=== PATIENT | male | born 1940 | race Caucasian/White ===

== ENCOUNTER 2016-06-30 05:24 | Inpatient (IN) ==
[2016-06-30] MEDS ORDERED: ceFAZolin 1,000 MG VIAL ONE (05:56)
[2016-06-30] MEDS ORDERED: VANCOMYCIN 1,000 MG VIAL ONE (05:56)
[2016-06-30] MEDS ORDERED: SODIUM CHLORIDE 0.9% 100 ML IV ONE (05:56)
[2016-06-30] MEDS ORDERED: VANCOMYCIN INJ 1,000 MG in SODIUM CHLORIDE 0.9% 250 ML IV ONE (06:00)
[2016-06-30] MEDS ORDERED: MORPHINE 10 MG/1 ML VIAL ONE (06:36)
[2016-06-30] MEDS ORDERED: BUPIVACAINE 0.5% 50 ML VIAL ONE (06:36)
[2016-06-30] MEDS ORDERED: EPINEPHrine 1 MG/ML VIAL ONE (06:36)
[2016-06-30] MEDS ORDERED: methylPREDNISolone SOD SUC 125 MG/2 ML VIAL ONE (06:37)
[2016-06-30] MEDS ORDERED: LORazepam 1 MG TABLET PO STA (06:43)
[2016-06-30] MEDS ORDERED: FAMOTIDINE 20 MG TABLET PO STA (06:43)
[2016-06-30] MEDS ORDERED: FAMOTIDINE 20 MG TABLET ONE (06:47)
[2016-06-30] MEDS ORDERED: LORazepam 1 MG TABLET ONE (06:47)
[2016-06-30] MEDS ORDERED: TRANEXAMIC ACID 1,000 MG/10 ML VIAL IV ONE (06:47)
--- NOTE | 2016-06-30 06:51 | History and Physical Update ---
History and Physical Update - History and Physical H&P was reviewed, the patient examined and there: are no changes in the patients condition since last H&P was completed. - Dictation Physical: refer to scanned H&P
[2016-06-30] MEDS ORDERED: ONDANSETRON 4 MG/2 ML VIAL ONE (06:58)
[2016-06-30] MEDS ORDERED: PROPOFOL 200 MG/20 ML VIAL IV ONE (06:58)
[2016-06-30] MEDS ORDERED: SUCCINYLCHOLINE 200 MG/10 ML VIAL ONE (06:58)
[2016-06-30] MEDS ORDERED: LACTATED RINGERS 1,000 ML IV SCH (07:00)
[2016-06-30] MEDS ORDERED: ONDANSETRON 4 MG/2 ML VIAL IV PRN (08:33)
[2016-06-30] MEDS ORDERED: diphenhydrAMINE CAP 25 MG CAPSULE PO PRN (08:33)
[2016-06-30] MEDS ORDERED: DESFLURANE 1 UNIT/15 MINUTE INH ONE (08:53)
[2016-06-30] MEDS ORDERED: fentaNYL 100 MCG/2 ML VIAL ONE (08:53)
[2016-06-30] MEDS ORDERED: ACETAMINOPHEN 1,000 MG/100 ML VIAL IV ONE (08:53)
[2016-06-30] MEDS ORDERED: MIDAZOLAM 2 MG/2 ML VIAL ONE (08:53)
[2016-06-30] MEDS ORDERED: hydrALAZINE 20 MG/1 ML VIAL ONE (09:11)
[2016-06-30] MEDS ORDERED: hydrALAZINE 20 MG/1 ML VIAL IV ONE (09:16)
[2016-06-30] MEDS ORDERED: ROPIVACAINE 0.5% 30 ML VIAL ONE (09:17)
--- NOTE | 2016-06-30 09:37 | Anesthesia Post-Op ---
Anesthesia Post OP - Post Ansesthetic Evaluation Patient seen in post op: Yes Resp: within normal limits CV: within normal limits Mental: within normal limits Temp: within normal limits [id number]: within normal limits Nausea and Vomiting: within normal limits Pain: within normal limits
--- NOTE | 2016-06-30 11:32 | Pulmonology Progress Note ---
Pulmonary - PN: Subj Interval history: Roger Bosch, ANP-BC, GNP-BC, acting as scribe for Dr. Desean Mark Mr. Monet is a 76-year-old white male who underwent left total knee replacement earlier today (06/30/2016) by Dr. Naylor. He was seen postop along with his Deborah. He was cleared for surgery by Dr. Mark and Dr. Sewell. Other past history includes: Sick sinus syndrome requiring cardiac pacemaker, history of sleep apnea requiring CPAP which the patient no longer wears, asthma , chronic allergic sinusitis, hypertension, hyperlipidemia, severe degenerative joint disease, history of exogenous obesity improved with diet, past history of painful right upper and lower teeth with pain near GI responded to Klonopin, benign colon polyps, in July 2011 diagnosis of [place] grade 6 adenocarcinoma of the prostate that was treated with radiation by Dr. Gavino Segundo and followed by Dr. Ramirez. 06/30/2016. The patient was seen today along with his Deborah. The patient remains somewhat groggy and somnolent secondary to his sedation, but arouses easily. He had a discussion with the patient's about being careful with reflux particularly after eating. She understands this. Overall patient is doing well postop. Medications have been reviewed. His home medications have been restarted. Labs have been reviewed. No labs have been drawn today. Exam (Progress Note) - Constitutional Vitals: Period Temp Pulse Resp BP Sys/Veras Pulse Ox Last 24 Hr 97.4 F-97.9 F 62-73 10-18 143-219/71-94 92-100 Exam: Chest is clear Heart no gallop Abdomen is obese, but nontender and nondistended; bowel sounds positive 4 Extremities postsurgical as per Dr. Naylor; nothing to suggest acute deep venous thrombophlebitis Psychiatric... See above Neurologic long-term motor function appears to be intact Plan: Continue present treatment. Follow-up labs when available. See orders.
--- NOTE | 2016-06-30 11:41 | XRay Report ---
Exam: XR knee 2V RT Date: 06/30/2016 8:35 AM Comparison: None Indication: Right total knee replacement Technique:[AP and lateral right knee] Findings: Recent satisfactory right total knee replacement. Post operative findings. Diffuse arterial calcifications. Impression: Satisfactory right total knee replacement. Diffuse arterial calcifications are noted. PROCEDURE INTERPRETED AT [facility] DEPARTMENT OF RADIOLOGY Final Report Signed by: Dr. Cristela Haq
[2016-06-30] MEDS: ROSUVASTATIN 20 MG TABLET PO SCH (12:38)
[2016-06-30] MEDS: DOCUSATE SODIUM 100 MG CAPSULE PO SCH ×2 (12:39→21:14)
[2016-06-30] MEDS: metOLazone 2.5 MG TABLET PO SCH (12:39)
[2016-06-30] MEDS: ALBUTEROL 2 MG TABLET PO SCH (12:40)
[2016-06-30] MEDS: TRIAMTERENE/HCTZ 75-50 MG TABLET PO SCH (12:40)
[2016-06-30] MEDS: MULTIVITAMIN (OCUVITE) TABLET PO SCH (12:41)
[2016-06-30] MEDS: GABAPENTIN 100 MG CAPSULE PO SCH ×2 (12:41→21:13)
[2016-06-30] MEDS: MONTELUKAST 10 MG TABLET PO SCH (12:41)
[2016-06-30] MEDS: ACETAMINOPHEN 500 MG TABLET PO SCH ×2 (12:42→18:04)
[2016-06-30] MEDS: KETOROLAC 15 MG/1 ML VIAL IV SCH ×3 (12:43→23:14)
[2016-06-30] MEDS: ceFAZolin 2,000 MG in PREMIX 1 EACH IV SCH ×2 (14:54→21:14)
--- NOTE | 2016-06-30 15:21 | Orthopedic Progress Note ---
Assessment and Plan (1) Status post total right knee replacement Status: Acute Assessment and plan: Routine postop antibiotics DVT prophylaxis Out of bed with therapy today Discharge planning Current Visit: Yes Orthopedics - Subjective Interval history: Patient is postop right total knee, pain is controlled. No complaints. On exam his dressings clean dry is neurovascular intact in the right lower extremity Exam - Constitutional Vitals: Period Temp Pulse Resp BP Sys/Veras Pulse Ox Last 24 Hr 97.4 F-97.9 F 62-73 10-18 138-219/68-99 92-100
[2016-06-30] MEDS: SODIUM CHLORIDE 0.9% 1,000 ML IV SCH ×2 (18:03→21:51)
[2016-07-01] MEDS: ACETAMINOPHEN 500 MG TABLET PO SCH ×2 (01:07→05:59)
[2016-07-01] MEDS: TEMAZEPAM 7.5 MG CAPSULE PO PRN ×2 (01:12→21:13)
[2016-07-01 04:19] LABS: Basophils % 0.2 % (0.0-0.8); Eosinophils % 0.1 % (0.00-10.9); Hematocrit 38.2 VOL% (42.0-52.0); Hemoglobin 13.3 GM/DL (14.0-18.0); Immature Granulocytes % 0.4 %; Immature Granulocytes Absolute 0.05 #; Lymphocytes # 0.8 10*3/uL (1.4-4.0); Lymphocytes % 5.6 % (21.2-54.2); Mean Corpuscular HGB Conc 34.8 GM/DL (32-36); Mean Corpuscular Hemoglobin 32 PG (27-34); Mean Corpuscular Volume 91.2 FL (87-102); Mean Platelet Volume 10.5 FL (9.6-12.0); Monocytes # 0.9 10*3/uL (0.11-0.8); Monocytes % 6.1 % (1.7-12.7); Neutrophils # 12.2 10*3/uL (1.4-7.4); Neutrophils % 87.6 % (38.7-73.9); Platelet Count 124 T/CUMM (130-400); Red Blood Count 4.19 MC/CUMM (3.8-5.5); Red Cell Distribution Width 13.2 % (9.3-17.3); White Blood Count 13.9 T/CUMM (4-12)
[2016-07-01 05:33] LABS: Calcium 7.7 MG/DL (8.5-10.1); Potassium 3.3 MMOL/L (3.5-5.1)
[2016-07-01] MEDS: SODIUM CHLORIDE 0.9% 1,000 ML IV SCH (05:58)
[2016-07-01] MEDS: ENOXAPARIN 40 MG/0.4 ML SYRINGE SUBCUT SCH (05:59)
[2016-07-01] MEDS: KETOROLAC 15 MG/1 ML VIAL IV SCH (06:00)
--- NOTE | 2016-07-01 07:56 | Orthopedic Progress Note ---
Assessment and Plan (1) Status post total right knee replacement Status: Acute Assessment and plan: DVT prophylaxis Out of bed with therapy Discharge home with home PT when ambulating safely Current Visit: Yes Orthopedics - Subjective Interval history: Patient states is comfortable today, has no complaints. On exam his dressings clean and dry, he is neurovascularly intact. Exam - Constitutional Vitals: Period Temp Pulse Resp BP Sys/Veras Pulse Ox Last 24 Hr 97.0 F-99.3 F 62-74 10-20 130-219/63-99 92-100 Results - Labs CBC & BMP: 07/01/16 02:48 07/01/16 02:48
[2016-07-01] MEDS ORDERED: ACETAMINOPHEN 325 MG TABLET PO PRN (08:34)
--- NOTE | 2016-07-01 09:48 | Pulmonology Progress Note ---
Pulmonary - PN: Subj Interval history: This 76-year-old white male had a right total knee replacement yesterday. He has had very little problems postop. Blood pressure is well controlled. No indigestion. No shortness of breath or cough. No fever. Exam (Progress Note) - Constitutional Vitals: Period Temp Pulse Resp BP Sys/Veras Pulse Ox Last 24 Hr 97.0 F-99.3 F 62-74 18-20 130-165/63-99 92-99 Exam: Patient is alert and oriented vital signs are normal. Pupils react to light. Throat is clear. Neck supple no bruits. Chest sounds clear equal breath sounds. Heart normal rate rhythm no murmurs no rubs or gallops. Abdomen soft nontender no masses. Extremities no clubbing cyanosis edema. Calves nontender. Brace and bandage on right knee. Results - Labs CBC & BMP: 07/01/16 02:48 07/01/16 02:48 Lab Results: I have reviewed the past 24 hour labs Assessment and Plan (1) Status post total right knee replacement Status: Acute Assessment and plan: Patient has been able to stand with help. No signs of DVT. Pain is managed fairly well. Current Visit: Yes (2) Degenerative arthritis Status: Acute Assessment and plan: Continuing arthritic medications. Current Visit: Yes
[2016-07-01] MEDS: DOCUSATE SODIUM 100 MG CAPSULE PO SCH ×2 (11:02→21:13)
[2016-07-01] MEDS: metOLazone 2.5 MG TABLET PO SCH (11:02)
[2016-07-01] MEDS: ROSUVASTATIN 20 MG TABLET PO SCH (11:03)
[2016-07-01] MEDS: ALBUTEROL 2 MG TABLET PO SCH (11:03)
[2016-07-01] MEDS: GABAPENTIN 100 MG CAPSULE PO SCH ×2 (11:04→21:13)
[2016-07-01] MEDS: MULTIVITAMIN (OCUVITE) TABLET PO SCH (11:04)
[2016-07-01] MEDS: MONTELUKAST 10 MG TABLET PO SCH (11:04)
[2016-07-01] MEDS: TRIAMTERENE/HCTZ 75-50 MG TABLET PO SCH (11:04)
[2016-07-01] MEDS: CELECOXIB 200 MG CAPSULE PO SCH (14:04)
[2016-07-02 04:35] LABS: Basophils % 0.3 % (0.0-0.8); Eosinophils # 0.3 10*3/uL (0.0-0.87); Eosinophils % 3.3 % (0.00-10.9); Hematocrit 37.8 VOL% (42.0-52.0); Hemoglobin 13.1 GM/DL (14.0-18.0); Immature Granulocytes % 0.5 %; Immature Granulocytes Absolute 0.05 #; Lymphocytes # 1.1 10*3/uL (1.4-4.0); Lymphocytes % 11.9 % (21.2-54.2); Mean Corpuscular HGB Conc 34.7 GM/DL (32-36); Mean Corpuscular Hemoglobin 32 PG (27-34); Mean Corpuscular Volume 91.3 FL (87-102); Mean Platelet Volume 10.4 FL (9.6-12.0); Monocytes # 0.8 10*3/uL (0.11-0.8); Monocytes % 8.9 % (1.7-12.7); Neutrophils # 7.1 10*3/uL (1.4-7.4); Neutrophils % 75.1 % (38.7-73.9); Platelet Count 105 T/CUMM (130-400); Red Blood Count 4.14 MC/CUMM (3.8-5.5); Red Cell Distribution Width 13.4 % (9.3-17.3); White Blood Count 9.5 T/CUMM (4-12)
[2016-07-02] MEDS: ENOXAPARIN 40 MG/0.4 ML SYRINGE SUBCUT SCH (05:31)
--- NOTE | 2016-07-02 09:48 | Orthopedic Progress Note ---
Assessment and Plan (1) Status post total right knee replacement Status: Acute Assessment and plan: DVT prophylaxis Out of bed with therapy Discharge home with home PT tomorrow or Sunday Current Visit: Yes Orthopedics - Subjective Interval history: Patient states he feels better, he was able to do more with therapy and he was yesterday. On exam his dressings clean and dry, is neurovascular intact. Exam - Constitutional Vitals: Period Temp Pulse Resp BP Sys/Veras Pulse Ox Last 24 Hr 97.6 F-99.6 F 64-70 17-20 140-165/72-84 94-97 Results - Labs CBC & BMP: 07/02/16 03:46 07/01/16 02:48
[2016-07-02] MEDS: DOCUSATE SODIUM 100 MG CAPSULE PO SCH ×2 (10:13→21:43)
[2016-07-02] MEDS: ROSUVASTATIN 20 MG TABLET PO SCH (10:13)
[2016-07-02] MEDS: GABAPENTIN 100 MG CAPSULE PO SCH ×2 (10:14→21:43)
[2016-07-02] MEDS: metOLazone 2.5 MG TABLET PO SCH (10:14)
[2016-07-02] MEDS: MONTELUKAST 10 MG TABLET PO SCH (10:14)
[2016-07-02] MEDS: ALBUTEROL 2 MG TABLET PO SCH (10:14)
[2016-07-02] MEDS: MULTIVITAMIN (OCUVITE) TABLET PO SCH (10:14)
[2016-07-02] MEDS: MAGNESIUM HYDROXIDE SUSP 30 ML UDCUP PO PRN (10:15)
[2016-07-02] MEDS: TRIAMTERENE/HCTZ 75-50 MG TABLET PO SCH (10:15)
[2016-07-02] MEDS: CELECOXIB 200 MG CAPSULE PO SCH (10:26)
--- NOTE | 2016-07-02 10:46 | Pulmonology Progress Note ---
Pulmonary - PN: Subj Interval history: This 76-year-old white male had a right total knee replacement yesterday. He has had very little problems postop. Blood pressure is well controlled. No indigestion. No shortness of breath or cough. No fever. 07/02/2016 patient is able to stand and take a couple of steps. He is not having any shortness of breath or indigestion. Doing well postop right total knee replacement thus far. Exam (Progress Note) - Constitutional Vitals: Period Temp Pulse Resp BP Sys/Veras Pulse Ox Last 24 Hr 97.6 F-99.6 F 64-70 17-20 140-165/72-84 94-97 General appearance: no severe distress Exam: Patient is alert and oriented vital signs are normal. Pupils react to light. Throat is clear. Neck supple no bruits. Chest sounds clear equal breath sounds. Heart normal rate rhythm no murmurs no rubs or gallops. Abdomen soft nontender no masses. Extremities no clubbing cyanosis edema. Calves nontender. Brace and bandage on right knee. Little change from yesterday. Results - Labs CBC & BMP: 07/02/16 03:46 07/01/16 02:48 Lab Results: I have reviewed the past 24 hour labs Assessment and Plan (1) Status post total right knee replacement Status: Acute Assessment and plan: Patient has been able to stand with help. No signs of DVT. Pain is managed fairly well. 07/02/2016 patient ambulating with help with physical therapy. No real problems with pain. calves are nontender Current Visit: Yes (2) Degenerative arthritis Status: Acute Assessment and plan: Continuing arthritic medications. Current Visit: Yes
[2016-07-02] MEDS: TEMAZEPAM 7.5 MG CAPSULE PO PRN (21:43)
[2016-07-03 03:01] LABS: Basophils % 0.3 % (0.0-0.8); Eosinophils # 0.3 10*3/uL (0.0-0.87); Eosinophils % 3.1 % (0.00-10.9); Hematocrit 38.4 VOL% (42.0-52.0); Hemoglobin 12.9 GM/DL (14.0-18.0); Immature Granulocytes % 0.3 %; Immature Granulocytes Absolute 0.03 #; Lymphocytes # 1.3 10*3/uL (1.4-4.0); Lymphocytes % 14.6 % (21.2-54.2); Mean Corpuscular HGB Conc 33.6 GM/DL (32-36); Mean Corpuscular Hemoglobin 32 PG (27-34); Mean Platelet Volume 10.3 FL (9.6-12.0); Monocytes % 10.8 % (1.7-12.7); Neutrophils # 6.2 10*3/uL (1.4-7.4); Neutrophils % 70.9 % (38.7-73.9); Platelet Count 108 T/CUMM (130-400); Red Blood Count 4.04 MC/CUMM (3.8-5.5); Red Cell Distribution Width 13.3 % (9.3-17.3); White Blood Count 8.8 T/CUMM (4-12)
[2016-07-03] MEDS: ENOXAPARIN 40 MG/0.4 ML SYRINGE SUBCUT SCH (05:39)
[2016-07-03] MEDS: MAGNESIUM HYDROXIDE SUSP 30 ML UDCUP PO PRN (05:43)
--- NOTE | 2016-07-03 08:37 | Orthopedic Progress Note ---
Assessment and Plan (1) Status post total right knee replacement Status: Acute Assessment and plan: DVT prophylaxis Out of bed with therapy twice daily Discharge home with home PT tomorrow Current Visit: Yes Orthopedics - Subjective Interval history: Patient's pain is controlled. He has been having flatus, feels like he would have a bowel movement. On exam his dressings clean and dry, is neurovascularly intact. Exam - Constitutional Vitals: Period Temp Pulse Resp BP Sys/Veras Pulse Ox Last 24 Hr 96.1 F-98.1 F 65-84 17-20 152-174/74-110 93-98 Results - Labs CBC & BMP: 07/03/16 02:33 07/01/16 02:48
[2016-07-03] MEDS: CELECOXIB 200 MG CAPSULE PO SCH (09:56)
[2016-07-03] MEDS: DOCUSATE SODIUM 100 MG CAPSULE PO SCH (09:57)
[2016-07-03] MEDS: ROSUVASTATIN 20 MG TABLET PO SCH (09:57)
[2016-07-03] MEDS: MULTIVITAMIN (OCUVITE) TABLET PO SCH (09:57)
[2016-07-03] MEDS: GABAPENTIN 100 MG CAPSULE PO SCH (09:57)
[2016-07-03] MEDS: TRIAMTERENE/HCTZ 75-50 MG TABLET PO SCH (09:58)
[2016-07-03] MEDS: metOLazone 2.5 MG TABLET PO SCH (09:58)
[2016-07-03] MEDS: ALBUTEROL 2 MG TABLET PO SCH (09:58)
[2016-07-03] MEDS: MONTELUKAST 10 MG TABLET PO SCH (09:58)
--- NOTE | 2016-07-03 10:44 | Pulmonology Progress Note ---
Pulmonary - PN: Subj Interval history: Mr. Monet is a 76-year-old white male who underwent left total knee replacement earlier today (06/30/2016) by Dr. Naylor. He was seen postop along with his Deborah. He was cleared for surgery by Dr. Mark and Dr. Sewell. Other past history includes: Sick sinus syndrome requiring cardiac pacemaker, history of sleep apnea requiring CPAP which the patient no longer wears, asthma , chronic allergic sinusitis, hypertension, hyperlipidemia, severe degenerative joint disease, history of exogenous obesity improved with diet, past history of painful right upper and lower teeth with pain near GI responded to Klonopin, benign colon polyps, in July 2011 diagnosis of [place] grade 6 adenocarcinoma of the prostate that was treated with radiation by Dr. Gavino Segundo and followed by Dr. Ramirez. 06/30/2016. The patient was seen today along with his Deborah. The patient remains somewhat groggy and somnolent secondary to his sedation, but arouses easily. He had a discussion with the patient's about being careful with reflux particularly after eating. She understands this. Overall patient is doing well postop. 07/03/2016. Patient was seen along with his today. He has not done too well and was getting up post knee surgery. His is not sure she can handle him at home just yet. He might benefit from a swing bed or rehab. When he goes home I think he will need home physical therapy for a while. Medications have been reviewed. His home medications have been restarted. Labs have been reviewed. H&H is stable. Physical exam. Vital signs. See below Psychiatric oriented 3 Neurologic. Cranial nerves are intact. Patient is hard of hearing. He has hearing aids. Long track motor functions intact. Chest is clear. Heart no gallop Abdomen is not distended. Note the patient had his first bowel movement today The remainder the physical exam is negative Plan. 1. 07/03/2016. See today's note above Exam (Progress Note) - Constitutional Vitals: Period Temp Pulse Resp BP Sys/Veras Pulse Ox Last 24 Hr 96.1 F-98.1 F 65-84 17-20 152-174/74-110 93-98 Results - Labs CBC & BMP: 07/03/16 02:33 07/01/16 02:48 Specialty Discharge - Follow Up or Referrals Follow up with: Raz Naylor MD [Physician] - 1 Month
[2016-07-03 12:00] VITALS: BP 145/69
--- NOTE | 2016-07-03 13:46 | Discharge Summary ---
Hospital Course - Hospital Course Hospital Course: 76-year-old male admitted hospital following total knee arthroplasty. He tolerated the procedure well was transferred for stable condition postoperatively. He received routine antibiotics and thromboprophylaxis. Dr. Jane was consulted for medical management. Unfortunately, he did poorly with physical therapy and it was decided that he would benefit from inpatient rehab prior to going home. Once a bed was available, he was subsequent discharge. At the time of discharge his wounds clean and dry he was neurovascularly intact. Diagnosis - Discharge Diagnosis (1) Status post total right knee replacement Status: Acute Specialty Discharge - Follow Up or Referrals Follow up with: Raz Naylor MD [Physician] - 08/03/16 1:15 pm Discharge Plan - Discharge Data Disposition: Disch/Xfer-Ip Rehab Fac Condition at Discharge: Stable Discharge Diet: advance to your usual diet Activity: ambulate only with your walker Hygiene: may shower Weight Bearing at Discharge: weight bear as tolerated Driving: not until seen by doctor Contact your physician if you experience:: fever over 101, Difficulty voiding, Redness or swelling, Nausea/Vomiting, Shortness of breath, Bleeding, pain uncontrolled by pain medications Wound / Dressing Care Instructions: Daily dressing change to right knee beginning Sunday. Okay to shower, no tub soaks. Ramer July 20, 2016 - Discharge Medications New Aspirin EC Tab 325 mg PO DAILY #30 tablet Docusate Sodium Cap [Colace Cap] 100 mg PO BID capsule Acetaminophen Tab [Tylenol Tab] 650 mg PO Q6H PRN #0 tablet PRN Reason: Pain Mild (1-3) HYDROcodone/ACETAMIN 7.5-325 [[place] 7.5-325] 1 - 2 tablet PO Q4H PRN #60 tablet PRN Reason: Pain Moderate (4-7) Continue metOLazone [Zaroxolyn] 2.5 mg PO DAILY Montelukast Tab [Singulair Tab] 10 mg PO DAILY Gabapentin Cap/Tab [Neurontin Cap/Tab] 100 mg PO BID Meloxicam [Mobic] 15 mg PO DAILY Albuterol Tab [Proventil Tab] 2 mg PO DAILY Triamterene/Hctz 75-50 Tab [Maxzide 75-50] 1 tablet PO DAILY Rosuvastatin [Crestor] 20 mg PO DAILY Multivit-Min/FA/Lutein/Zeaxant [Icaps Mv Tablet] 1 each PO DAILY Discontinued Aspirin EC Tab 81 mg PO DAILY - Follow Up or Referral Follow Up: Raz Naylor MD [Physician] - (2-3 weeks) - Forms/Instructions Instructions: Total Knee Replacement (DC) Exam - Constitutional Vitals: Period Temp Pulse Resp BP Sys/Veras Pulse Ox Last 24 Hr 96.1 F-99.2 F 65-84 16-20 145-174/69-110 93-98 Discharge Results Labs on day of discharge: Labs from last 24 hours 07/03/16 02:33 WBC 8.8 RBC 4.04 Hgb 12.9 L Hct 38.4 L MCV 95.0 MCH 32 MCHC 33.6 RDW 13.3 Plt Count 108 L MPV 10.3 Neut % (Auto) 70.9 Lymph % (Auto) 14.6 L [place] % (Auto) 10.8 Eos % (Auto) 3.1 Baso % (Auto) 0.3 Neut # (Auto) 6.2 Lymph # (Auto) 1.3 L [place] # (Auto) 1.0 H Eos # (Auto) 0.3 Baso # (Auto) 0.0 Immature Gran % 0.3 Nucleated RBC % 0.0 Immature Gran # 0.03 Nucleated RBCs # 0.00 DS: Provider Date of admission: 06/30/16 05:24 Primary care physician: Desean Mark MD Attending physician on admission: Raz Naylor MD Consults: 06/30/16 08:33 Consult to Case Mgmt/Social Srvs [CONS] Routine Reason for Case Mgmt/Social Srvs: Rehab Home Health Equipment Consult Comment: Bedside Commode, CPM, Walker Consult to Occupational Therapy [CONS] Routine Reason for Occupational Therapy: Evaluate and Treat Consult Comment: ADL's Consult to Physical Therapy [CONS] Routine Reason for Physical Therapy: Evaluate and Treat Gait Training Start Therapy: Today 06/30/16 08:35 Consult to Physician [CONS] Routine Comment: Consulting Provider: Desean Mark When should Consulting Provider be notified: Now Person Notified: Maria Del Carmen called Date Notified: 06/30/16 Time Notified: 10:00 07/03/16 08:39 Consult to [facility] [CONS] Routine Reason for Wound Care: Wound Care Management Consult Comment: left posterior calf Discharging clinician: Raz Naylor MD
[2016-07-03] MEDS ORDERED: SKIN HEALING OINT (AQUAPHOR) 50 GM TUBE TOP PRN (14:17)
== END 2016-07-03 14:45 | DRG 470 ==
LOC: N.SDSINP 05:24 → N.3E 09:43
PROVIDERS: ADMIT Orthopaedic Surgery; ATTEND Orthopaedic Surgery

== ENCOUNTER 2017-09-03 05:03 | Inpatient (IN) ==
[2017-09-04 06:15] LABS: Basophils % 0.2 % (0.0-0.8); Eosinophils % 0.1 % (0.00-10.9); Hematocrit 39.1 VOL% (42.0-52.0); Hemoglobin 13.8 GM/DL (14.0-18.0); Immature Granulocytes % 0.6 %; Immature Granulocytes Absolute 0.07 #; Lymphocytes # 1.3 10*3/uL (1.4-4.0); Lymphocytes % 10.4 % (21.2-54.2); Mean Corpuscular HGB Conc 35.3 GM/DL (32-36); Mean Corpuscular Hemoglobin 32 PG (27-34); Mean Corpuscular Volume 90.9 FL (87-102); Mean Platelet Volume 10.3 FL (9.6-12.0); Monocytes # 1.2 10*3/uL (0.11-0.8); Monocytes % 9.5 % (1.7-12.7); Neutrophils % 79.2 % (38.7-73.9); Platelet Count 158 T/CUMM (130-400); Red Cell Distribution Width 12.9 % (9.3-17.3); White Blood Count 12.6 T/CUMM (4-12)
[2017-09-04 06:34] LABS: Calcium 7.9 MG/DL (8.5-10.1); Potassium 3.5 MMOL/L (3.5-5.1)
[2017-09-05 10:19] LABS: Basophils # 0.1 10*3/uL (0.0-0.2); Basophils % 0.8 % (0.0-0.8); Eosinophils # 0.4 10*3/uL (0.0-0.87); Eosinophils % 2.9 % (0.00-10.9); Hematocrit 41.6 VOL% (42.0-52.0); Hemoglobin 14.5 GM/DL (14.0-18.0); Immature Granulocytes % 0.8 %; Lymphocytes # 1.6 10*3/uL (1.4-4.0); Lymphocytes % 12.8 % (21.2-54.2); Mean Corpuscular HGB Conc 34.9 GM/DL (32-36); Mean Corpuscular Hemoglobin 33 PG (27-34); Mean Corpuscular Volume 93.7 FL (87-102); Mean Platelet Volume 9.8 FL (9.6-12.0); Monocytes # 1.2 10*3/uL (0.11-0.8); Monocytes % 10.1 % (1.7-12.7); Neutrophils # 8.9 10*3/uL (1.4-7.4); Neutrophils % 72.6 % (38.7-73.9); Platelet Count 157 T/CUMM (130-400); Red Blood Count 4.44 MC/CUMM (3.8-5.5); Red Cell Distribution Width 12.9 % (9.3-17.3); White Blood Count 12.3 T/CUMM (4-12)
[2017-09-05 10:40] LABS: Calcium 8.5 MG/DL (8.5-10.1); Potassium 3.7 MMOL/L (3.5-5.1)
[2017-09-06 06:37] LABS: Basophils # 0.1 10*3/uL (0.0-0.2); Basophils % 0.5 % (0.0-0.8); Eosinophils # 0.4 10*3/uL (0.0-0.87); Hematocrit 37.7 VOL% (42.0-52.0); Hemoglobin 13.2 GM/DL (14.0-18.0); Immature Granulocytes % 0.3 %; Immature Granulocytes Absolute 0.03 #; Lymphocytes # 1.3 10*3/uL (1.4-4.0); Lymphocytes % 11.1 % (21.2-54.2); Mean Corpuscular Hemoglobin 32 PG (27-34); Mean Corpuscular Volume 91.5 FL (87-102); Mean Platelet Volume 9.8 FL (9.6-12.0); Monocytes % 8.4 % (1.7-12.7); Neutrophils % 76.7 % (38.7-73.9); Platelet Count 152 T/CUMM (130-400); Red Blood Count 4.12 MC/CUMM (3.8-5.5); Red Cell Distribution Width 12.9 % (9.3-17.3); White Blood Count 11.7 T/CUMM (4-12)
[2017-09-06 06:50] LABS: Calcium 8.3 MG/DL (8.5-10.1); Osmolality,Calculated 273.1 MOS/KG (273-304); Potassium 4.1 MMOL/L (3.5-5.1)
[2017-09-06 17:31] VITALS: BP 126/60
== END 2017-09-06 17:30 | DRG 470 ==
LOC: N.OR 05:03 → N.SDSINP 05:08 → N.3E 07:11
PROVIDERS: ADMIT Orthopaedic Surgery; ATTEND Orthopaedic Surgery

== ENCOUNTER 2017-09-25 10:05 | Observation (INO) ==
[2017-09-25 10:49] LABS: Basophils # 0.1 10*3/uL (0.0-0.2); Basophils % 0.8 % (0.0-0.8); Eosinophils # 0.2 10*3/uL (0.0-0.87); Eosinophils % 2.3 % (0.00-10.9); Hematocrit 37.8 VOL% (42.0-52.0); Hemoglobin 12.7 GM/DL (14.0-18.0); Immature Granulocytes % 0.1 %; Immature Granulocytes Absolute 0.01 #; Lymphocytes # 1.1 10*3/uL (1.4-4.0); Lymphocytes % 14.3 % (21.2-54.2); Mean Corpuscular HGB Conc 33.6 GM/DL (32-36); Mean Corpuscular Hemoglobin 32 PG (27-34); Mean Platelet Volume 9.7 FL (9.6-12.0); Monocytes # 0.6 10*3/uL (0.11-0.8); Monocytes % 8.5 % (1.7-12.7); Neutrophils # 5.5 10*3/uL (1.4-7.4); Platelet Count 230 T/CUMM (130-400); Red Blood Count 3.98 MC/CUMM (3.8-5.5); Red Cell Distribution Width 12.6 % (9.3-17.3); White Blood Count 7.4 T/CUMM (4-12)
[2017-09-25 11:15] LABS: Potassium 3.7 MMOL/L (3.5-5.1)
[2017-09-25] MEDS: LACTATED RINGERS 1,000 ML IV SCH (11:30)
[2017-09-25] MEDS ORDERED: FAMOTIDINE 20 MG TABLET PO ONE (12:20)
[2017-09-25] MEDS ORDERED: FAMOTIDINE 20 MG TABLET ONE (12:43)
[2017-09-25] MEDS ORDERED: VANCOMYCIN 500 MG VIAL ONE (16:35)
[2017-09-25] MEDS ORDERED: VANCOMYCIN 1,000 MG VIAL ONE (16:35)
[2017-09-25] MEDS ORDERED: VANCOMYCIN INJ 1,500 MG in SODIUM CHLORIDE 0.9% 500 ML IV ONE (16:36)
[2017-09-25] MEDS ORDERED: ONDANSETRON 4 MG/2 ML VIAL IV PRN (16:57)
[2017-09-25] MEDS ORDERED: ACETAMINOPHEN 325 MG TABLET PO PRN (16:57)
[2017-09-25] MEDS ORDERED: MORPHINE 4 MG/1 ML VIAL IV PRN ×2 (16:57→21:01)
[2017-09-25] MEDS ORDERED: PROMETHAZINE 25 MG/1 ML VIAL IM PRN (16:57)
[2017-09-25] MEDS ORDERED: MAGNESIUM HYDROXIDE SUSP 30 ML UDCUP PO PRN (16:57)
[2017-09-25] MEDS ORDERED: PROPOFOL 200 MG/20 ML VIAL IV ONE (17:03)
[2017-09-25] MEDS ORDERED: fentaNYL 100 MCG/2 ML VIAL ONE (17:03)
[2017-09-25] MEDS ORDERED: SEVOFLURANE 1 UNIT/15 MINUTE INH ONE (17:03)
[2017-09-26] MEDS ORDERED: LEVOFLOXACIN 500 MG TABLET PO SCH (09:00)
[2017-09-26] MEDS ORDERED: ASPIRIN EC 325 MG TABLET PO SCH (09:00)
[2017-09-26] MEDS ORDERED: TRIAMTERENE/HCTZ 75-50 MG TABLET PO SCH (09:00)
[2017-09-26] MEDS ORDERED: TAMSULOSIN 0.4 MG CAPSULE PO SCH (09:00)
[2017-09-26] MEDS ORDERED: ROSUVASTATIN 20 MG TABLET PO SCH (09:00)
[2017-09-26] MEDS ORDERED: MELOXICAM 7.5 MG TABLET PO SCH (09:00)
[2017-09-26] MEDS ORDERED: ACETAMINOPHEN 325 MG TABLET PO SCH (09:00)
[2017-09-26] MEDS ORDERED: MONTELUKAST 10 MG TABLET PO SCH (09:00)
[2017-09-26] MEDS ORDERED: VANCOMYCIN INJ 1,000 MG in SODIUM CHLORIDE 0.9% 250 ML IV ONE (09:00)
[2017-09-26] MEDS ORDERED: ALBUTEROL 2 MG TABLET PO SCH (09:00)
[2017-09-26] MEDS ORDERED: VALSARTAN 80 MG TABLET PO SCH (09:00)
[2017-09-26] MEDS ORDERED: metOLazone 2.5 MG TABLET PO SCH (09:00)
[2017-09-26] MEDS: LACTATED RINGERS 1,000 ML IV SCH (11:07)
[2017-09-26 11:39] VITALS: BP 170/76
== END 2017-09-26 19:00 | disposition home or self-care (01) ==
LOC: N.3E 10:05 → N.OR 10:05 → N.SDSINP 10:29 → N.3E 18:02 → N.OR 09-26 13:36 → N.3E 09-26 17:19
PROVIDERS: ADMIT Orthopaedic Surgery; ATTEND Orthopaedic Surgery

== ENCOUNTER 2017-10-02 09:12 | Inpatient (IN) ==
[2017-10-02] MEDS ORDERED: ZALEPLON 5 MG CAPSULE PO PRN ×2 (15:00→15:14)
[2017-10-02] MEDS ORDERED: ONDANSETRON 4 MG/2 ML VIAL IV PRN (15:02)
[2017-10-02 16:07] LABS: Calcium 8.4 MG/DL (8.5-10.1); Osmolality,Calculated 274.2 MOS/KG (273-304)
[2017-10-02] MEDS ORDERED: VANCOMYCIN INJ 2,000 MG in SODIUM CHLORIDE 0.9% 500 ML IV ONE (17:00)
[2017-10-02] MEDS: SULFAMETHOX/TRIMETHOPRIM 800-160 MG TABLET PO SCH (20:36)
[2017-10-02] MEDS ORDERED: SULFAMETHOX/TRIMETHOPRIM 800-160 MG TABLET PO SCH (21:00)
[2017-10-03] MEDS: ACETAMINOPHEN 500 MG TABLET PO SCH (09:15)
[2017-10-03] MEDS: metOLazone 2.5 MG TABLET PO SCH (09:15)
[2017-10-03] MEDS: ASPIRIN EC 325 MG TABLET PO SCH (09:15)
[2017-10-03] MEDS: ALBUTEROL 2 MG TABLET PO SCH (09:15)
[2017-10-03] MEDS: MELOXICAM 7.5 MG TABLET PO SCH (09:15)
[2017-10-03] MEDS: ROSUVASTATIN 20 MG TABLET PO SCH (09:15)
[2017-10-03] MEDS: TAMSULOSIN 0.4 MG CAPSULE PO SCH (09:15)
[2017-10-03] MEDS: SULFAMETHOX/TRIMETHOPRIM 800-160 MG TABLET PO SCH ×2 (09:16→20:45)
[2017-10-03] MEDS: MONTELUKAST 10 MG TABLET PO SCH (09:16)
[2017-10-03] MEDS: VANCOMYCIN INJ 2,000 MG in SODIUM CHLORIDE 0.9% 500 ML IV SCH (15:42)
[2017-10-04 06:03] LABS: Calcium 8.4 MG/DL (8.5-10.1); Osmolality,Calculated 275.8 MOS/KG (273-304); Potassium 3.9 MMOL/L (3.5-5.1)
[2017-10-04] MEDS: SULFAMETHOX/TRIMETHOPRIM 800-160 MG TABLET PO SCH ×2 (09:26→20:53)
[2017-10-04] MEDS: TAMSULOSIN 0.4 MG CAPSULE PO SCH (09:26)
[2017-10-04] MEDS: metOLazone 2.5 MG TABLET PO SCH (09:26)
[2017-10-04] MEDS: ROSUVASTATIN 20 MG TABLET PO SCH (09:27)
[2017-10-04] MEDS: ALBUTEROL 2 MG TABLET PO SCH (09:27)
[2017-10-04] MEDS: ASPIRIN EC 325 MG TABLET PO SCH (09:27)
[2017-10-04] MEDS: MONTELUKAST 10 MG TABLET PO SCH (09:27)
[2017-10-04] MEDS: MELOXICAM 7.5 MG TABLET PO SCH (09:27)
[2017-10-04] MEDS: ACETAMINOPHEN 500 MG TABLET PO SCH (09:27)
[2017-10-04] MEDS: VANCOMYCIN INJ 2,000 MG in SODIUM CHLORIDE 0.9% 500 ML IV SCH (16:32)
[2017-10-05] MEDS: MONTELUKAST 10 MG TABLET PO SCH (08:37)
[2017-10-05] MEDS: MELOXICAM 7.5 MG TABLET PO SCH (08:37)
[2017-10-05] MEDS: ALBUTEROL 2 MG TABLET PO SCH (08:37)
[2017-10-05] MEDS: ASPIRIN EC 325 MG TABLET PO SCH (08:37)
[2017-10-05] MEDS: ACETAMINOPHEN 500 MG TABLET PO SCH (08:37)
[2017-10-05] MEDS: SULFAMETHOX/TRIMETHOPRIM 800-160 MG TABLET PO SCH (08:37)
[2017-10-05] MEDS: metOLazone 2.5 MG TABLET PO SCH (08:37)
[2017-10-05] MEDS: TAMSULOSIN 0.4 MG CAPSULE PO SCH (08:38)
[2017-10-05] MEDS: ROSUVASTATIN 20 MG TABLET PO SCH (08:45)
[2017-10-05 11:37] VITALS: BP 171/88
== END 2017-10-05 10:20 | disposition home health service (06) | DRG 921 ==
LOC: N.3E
PROVIDERS: ADMIT Orthopaedic Surgery; ATTEND Orthopaedic Surgery